=== PATIENT | male | born 1980 | race African-American/Black ===

== ENCOUNTER 2020-12-25 00:19 | Emergency (ER) | payer SELFPAY ==
[~2020-12-25] VITALS: Ht 177.8 cm; Wt 97.5 kg
[2020-12-25 00:20] VITALS: BP 157/85
== END 2020-12-25 02:03 | disposition home or self-care (01) ==
LOC: ER 00:22
DX: R05 Cough (principal); J45.909 Unspecified asthma, uncomplicated
CPT/HCPCS: 71045-TC